=== PATIENT | female | born 1955 | race Caucasian/White ===

== ENCOUNTER → 2023-07-12 | Outpatient (CLI) | payer MEDICARE ==
[~2023-07-12] MED LIST: IBUP600 PO; NAPR220 PO; PHENA200 PO; SULTRIDS PO
[2023-07-19 00:33] LABS: HPV GENOTYPE 16 Not Detected; HPV GENOTYPE 18 Not Detected; HPV HIGH RISK Not Detected; HPV SOURCE Cervical
== END ==
LOC: LAB 14:44 → LAB SHORT 14:44
PROVIDERS: Family Medicine
DX: Z01.419 Encounter for gynecological examination (general) (routine) without abnormal findings (principal)
CPT/HCPCS: 87624; G0123

== ENCOUNTER 2024-04-23 18:19 | Emergency (ER) | payer MEDICARE ==
[~2024-04-23] VITALS: Ht 157.5 cm; Wt 61.2 kg
[2024-04-23 18:30] VITALS: BP 157/94
== END 2024-04-23 20:07 | disposition left against medical advice (07) ==
LOC: ER 18:19
DX: T18.128A Food in esophagus causing other injury, initial encounter (principal); Z53.29 Procedure and treatment not carried out because of patient's decision for other reasons
CPT/HCPCS: 99281

== ENCOUNTER 2024-07-16 06:23 | Emergency (ER) | payer MEDICARE ==
[~2024-07-16] VITALS: Ht 162.6 cm; Wt 61.2 kg
[2024-07-16 07:42] VITALS: BP 147/90
== END 2024-07-16 09:47 | disposition home or self-care (01) ==
LOC: ER 06:23
DX: M25.461 Effusion, right knee (principal); M25.561 Pain in right knee; Z87.891 Personal history of nicotine dependence; Z59.89 Other problems related to housing and economic circumstances
CPT/HCPCS: 93971; 99283-25